=== PATIENT | male | born 1995 | race Caucasian/White ===

== ENCOUNTER 2022-01-05 20:38 | Emergency (ER) | payer SELFPAY ==
[2022-01-05] MEDS ORDERED: Boostrix 0.5 ML (Tdap) VIAL ONE (21:21)
[2022-01-05] MEDS ORDERED: Sulfameth/Trimethoprim DS 800-160mg TAB ONE (22:19)
== END 2022-01-05 22:24 | disposition home or self-care (01) ==
LOC: MADERS 20:38
DX: L08.9 Local infection of the skin and subcutaneous tissue, unspecified (principal); F17.220 Nicotine dependence, chewing tobacco, uncomplicated
CPT/HCPCS: 90471; 90715